=== PATIENT | male | born 1960 | race Caucasian/White ===

== ENCOUNTER → 2016-11-18 | Outpatient (CLI) | payer BC ==
[~2016-11-18] MED LIST: BENZOCAINE ONE 20% MUCOSAL SPRAY.; MIDAZOLAM HCL/PF 2 MG/2 ML VIAL. ONE; fentaNYL PF VIAL 100 MCG/2 ML VIAL ONE
--- NOTE | 2016-11-18 15:03 | PCVCIMAG ---
APPROVED REPORT Study performed: 11/18/2016 11:56:19 EXAM: Transesophageal Echocardiogram Patient Location: [facility] Status: routine BSA: 2.35 HR: 123 bpm Rhythm: Atrial Fibrillation Other Information Study Quality: Good Indications Atrial Fibrillation Echo Enhancing Agent Indication: Rule out Shunt Agent(s) / Amount(s) Used: Agitated Saline cc Comments: Negative contrast study for shunt flow. Procedure After obtaining informed consent, patient underwent transesophageal echo in the [employer] [facility]. Type of Sedation : Conscious Sedation Sedation was administered by Genesis Stevens RN. Sedation was achieved intravenously with: Versed (6mg) Fentanyl (150mcg) Transesophageal probe was inserted and advanced into esophagus without difficulty by Umberto Lake MD. Echo enhancement indication: R/O Septal defect. Echo enhancement agent administered: Agitated Saline The ALISHA was performed without complications. Throughout the procedure, the blood pressure, pulse oximetry, cardiac rhythm, and rate were monitored. The patient tolerated the procedure without adverse effects. Recovery from conscious sedation was uneventful and vital signs were stable. Left Ventricle The left ventricle is normal size. There is normal LV segmental wall motion. There is normal left ventricular wall thickness. Left ventricular systolic function is normal. The left ventricular ejection fraction is within the normal range. Right Ventricle The right ventricle is normal size. The right ventricular systolic function is normal. Atria Left atrium is mildly dilated. No thrombus is visualized in the left atrium or appendage. The interatrial septum is intact with no evidence for an atrial septal defect. Right atrium is mildly dilated. Prominent eustachian valve Aortic Valve The aortic valve is normal in structure, trileaflet. No aortic regurgitation is present. There is no aortic valvular stenosis. Mitral Valve The mitral valve is normal in structure. Mild mitral regurgitation No evidence of mitral valve stenosis. Tricuspid Valve The tricuspid valve is normal in structure. There is no tricuspid valve regurgitation noted. Pulmonic Valve The pulmonary valve is normal in structure. There is no pulmonic valvular regurgitation. Great Vessels The aortic root is normal in size. The ascending aorta is normal in size. Pericardium There is no pericardial effusion. <Conclusion> Left ventricular systolic function is probably normal. Difficult to assess due to afib w/RVR There is normal LV segmental wall motion. Left atrium is mildly dilated. No masses or clots in the left atrium or appendage. Prominent eustachian valve in right atrium. No shunting by contrast bubble injection The aortic valve is normal in structure, trileaflet. No aortic valvular stenosis. The mitral valve is normal in structure. Mild mitral regurgitation The ascending aorta is normal in size. No atherosclerosis There is no pericardial effusion.
== END | disposition home or self-care (01) ==
LOC: PCVCINTER 11:08
PROVIDERS: ATTEND Internal Medicine
DX: I34.0 Nonrheumatic mitral (valve) insufficiency (principal); I48.91 Unspecified atrial fibrillation; E78.00 Pure hypercholesterolemia, unspecified; E78.5 Hyperlipidemia, unspecified; I10 Essential (primary) hypertension
CPT/HCPCS: 93312; 93325; 99152; J2250; J3010

== ENCOUNTER → 2017-12-30 | Outpatient (CLI) | payer BC ==
--- NOTE | 2017-12-31 09:14 | PCVCIMAG ---
APPROVED REPORT Study performed: 12/30/2017 14:14:02 EXAM: Comprehensive 2D, Doppler, and color-flow Echocardiogram Patient Location: Echo lab Status: routine BSA: 2.33 HR: 61 bpmBP: 128/72 mmHg Rhythm: Atrial Fibrillation Other Information Study Quality: Adequate Risk Factors: Cardiac Risk Factors: HTN, Hyperlipidemia Indications Atrial Fibrillation 2D Dimensions IVSd: 12.64 (7-11mm)LVOT Diam: 22.00 (18-24mm) LVDd: 47.26 mm PWd: 12.24 (7-11mm)Ascending Ao: 31.64 (22-36mm) LVDs: 28.70 (25-40mm) Left Atrium: 40.06 (27-40mm) Aortic Root: 31.69 mm LV Single Plane 4CH: 55.59 % LV Single Plane 2CH: 52.76 % Volumes Left Atrial Volume (Systole) Single Plane 4CH: 66.91 mLSingle Plane 2CH: 76.00 mL LA ESV Index: 34.00 mL/m2 Aortic Valve LVOT Max P.39 mmHg LVOT Max V: 0.92 m/s Mitral Valve E/A Ratio: 1.5 MV Decel. Time: 296.21 ms MV E Max Antony.: 0.88 m/s MV A Antony.: 0.57 m/s MV PHT: 85.90 ms IVRT: 51.90 ms TDI E/Lateral E': 6.77E/Medial E': 8.00 Medial E' Antony.: 0.11 m/s Lateral E' Antony.: 0.13 m/s Pulmonary Valve PV Peak Antony.: 0.99 m/sPV Peak Gr.: 3.92 mmHg DE End Vmax: 1.04 m/s Pulmonary Vein P Vein S: 0.57 m/sP Vein A: 0.24 m/s P Vein D: 0.32 m/sP Vein A Dur.: 93.4 msec P Vein S/D Ratio: 1.78 Tricuspid Valve TR Peak Antony.: 2.51 m/sRAP Estimate: 7.00 mmHg TR Peak Gr.: 25.26 mmHg PA Pressure: 32.00 mmHg Left Ventricle The left ventricle is normal size. There is normal LV segmental wall motion. Mild concentric left ventricular hypertrophy. Left ventricular systolic function is normal. The left ventricular ejection fraction is within the normal range. LVEF is 55%. Grade II - pseudonormal filling dynamics. Right Ventricle The right ventricle is normal size. The right ventricular systolic function is normal. Atria Left atrium is borderline dilated. Right atrium is dilated. Aortic Valve The aortic valve is normal in structure. No aortic regurgitation is present. There is no aortic valvular stenosis. Mitral Valve The mitral valve is normal in structure. Trace mitral regurgitation. No evidence of mitral valve stenosis. Tricuspid Valve The tricuspid valve is normal in structure. Trace to mild tricuspid regurgitation. Pulmonary artery pressure is 32 mmHg. Pulmonic Valve The pulmonary valve is normal in structure. Mild pulmonic regurgitation. Great Vessels The aortic root is normal in size. IVC is normal in size and collapses >50% with inspiration. Pericardium There is no pericardial effusion. <Conclusion> The left ventricle is normal size. LVEF is 55%. Left atrium is borderline dilated. Right atrium is dilated. The aortic valve is normal in structure. The mitral valve is normal in structure. Trace mitral regurgitation. The tricuspid valve is normal in structure. Trace to mild tricuspid regurgitation. Pulmonary artery pressure is 32 mmHg. The pulmonary valve is normal in structure. Mild pulmonic regurgitation. There is no pericardial effusion.
== END | disposition home or self-care (01) ==
LOC: PCVCIMAG 13:00
PROVIDERS: ATTEND Internal Medicine Cardiovascular Disease
DX: I37.1 Nonrheumatic pulmonary valve insufficiency (principal); I25.10 Atherosclerotic heart disease of native coronary artery without angina pectoris; I48.91 Unspecified atrial fibrillation; I10 Essential (primary) hypertension; E78.5 Hyperlipidemia, unspecified
CPT/HCPCS: 93306